=== PATIENT | female | born 1985 | race Caucasian/White ===

== ENCOUNTER 2022-09-17 14:30 | Emergency (ER) | payer SELFPAY | END 2022-09-17 15:22 | disposition home or self-care (01) | LOC: MW.ED 14:30 | DX: Z76.5 Malingerer [conscious simulation] (principal); I10 Essential (primary) hypertension; Z76.0 Encounter for issue of repeat prescription; Z79.899 Other long term (current) drug therapy | CPT/HCPCS: 99281; 99283 ==